=== PATIENT | male | born 1970 | race Caucasian/White ===

== ENCOUNTER 2020-01-19 16:36 | Inpatient (IN) ==
[2020-01-19] MEDS ORDERED: HYDROmorphone INJ 1 MG/ML SYRINGE IV STA (18:40)
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
[2020-01-19 19:47] LABS: Basophils # (auto) 0.01 K/uL (0-0.2); Basophils % (auto) 0.2 %; Eosinophils # (auto) 0.17 K/uL (0-0.5); Hematocrit (blood only) 41.2 % (42-52); Hemoglobin 14.6 g/dL (14.0-18.0); Immature Granulocytes # (auto) 0.01 K/uL (0.00-0.02); Immature Granulocytes % (auto) 0.2 %; Lymphocytes # (auto) 1.67 K/uL (1.2-3.4); Lymphocytes % (auto) 29.3 %; Mean Corpuscular Hgb Conc 35.4 g/dL (32-36); Mean Corpuscular Volume 93.2 fL (80-100); Mean Platelet Volume 9.8 fL (7.4-10.4); Monocytes # (auto) 0.61 K/uL (0.11-0.59); Monocytes % (auto) 10.7 %; Neutrophils # (auto) 3.22 K/uL (1.4-6.5); Neutrophils % (auto) 56.6 %; Platelet Count 157 K/uL (130-400); RDW Coefficient of Variation 12.6 % (11.5-14.5); RDW Standard Deviation 42.6 fL (36.4-46.3); Red Blood Count 4.42 M/uL (4.7-6.1); White Blood Count 5.69 K/uL (4.8-10.8)
[2020-01-19] MEDS ORDERED: HYDROmorphone INJ 0.5 MG/0.5 ML SYR IV STA (20:02)
[2020-01-19 20:14] LABS: Alanine Aminotransferase 38 U/L (12-78); Albumin Level 3.3 gm/dl (3.4-5.0); Aspartate Aminotransferase 23 U/L (15-37); BUN Creatinine Ratio 23.2 (10-20); Blood Urea Nitrogen 23 mg/dl (7-18); Calcium 8.8 mg/dl (8.5-10.1); Carbon Dioxide 25 mmol/L (21-32); Chloride 112 mmol/L (98-107); Est GFR (African American) 104.3; Glucose 219 mg/dl (70-99); Potassium 3.8 mmol/L (3.5-5.1); Sodium 140 mmol/L (136-145)
[2020-01-19 20:17] LABS: Albumin Globulin Ratio 0.9 (0.9-2); Alkaline Phosphatase 69 U/L (45-117); Bilirubin,Total 0.2 mg/dl (0.2-1); Globulin 3.8 gm/dl (2.5-4.0); Total Protein 7.1 gm/dl (6.4-8.2)
[2020-01-19] MEDS ORDERED: DEXAMETHASONE SOD INJ 10 MG/ML VIAL IV ONE (21:32)
--- NOTE | 2020-01-19 21:33 | History & Physical Report ---
Date of Service January 19, 2020 Assessment & Plan (1) Lumbar back pain with radiculopathy affecting right lower extremity: Admit to medical surgical floor Give Decadron 10 mg IV now, and then 6 mg IV every 6 hours Acetaminophen 650 mg p.o. every 6 hours as needed mild pain or temperature. Oxycodone 5 mg p.o. every 4 hours as needed moderate pain. Dilaudid 1 mg IV every 3 hours as needed severe pain Zofran 4 mg IV every 6 hours as needed Consult orthopedic spine surgery Dr. Wolfe Present on Admission?: Yes (2) Lumbar herniated disc: Lumbar herniated disc at L5-S1 causing deflection of thecal sac and pressure on L5 nerve root Present on Admission?: Yes (3) Diabetes mellitus: Hold Metformin. On Toujeo Solostar 15 to 17 units subcu at bedtime. Anticipate that his sugars will increase on Decadron. For now placed on 15 units subcu at bedtime. Placed on Accu-Cheks before meals and at bedtime with NovoLog coverage per scale Present on Admission?: Yes (4) Hyperlipidemia: On no specific treatment at this time Present on Admission?: Yes (5) Anxiety: Continue alprazolam 1 mg p.o. 3 times daily as needed. He has been on Ambien 10 mg p.o. at bedtime as needed in the past, and requests that be added tonight. Present on Admission?: Yes History of Present Illness Chief Complaint: The patient presents to the emergency department with complaint of persistent and intractable low back pain radiating toward his right buttock and leg Primary Care Provider: NO PCP The patient is a 49-year-old male with a past medical history including diabetes mellitus, anxiety, chronic pain syndrome, lumbar degenerative disc disease with herniated disc at L5-S1. He presents to the emergency department with persistent and worsening pain from his low back to right buttock to right leg. He did undergo an MRI in the outpatient setting at [facility] emergency department on 01/01 which showed disc herniation at L5-S1 with significant deformity of the right side of the thecal sac and encroachment on right sacral nerve roots. He does have pending appointments with orthopedic surgery and neurology on 01/20 and 01/21, however, his pain was so severe that he came in to the ED tonight. Dr. Wolfe, orthopedic spine surgery, was contacted over the phone by the ED, and agreed to see the patient in consult tomorrow. The plan is admit the patient to the [facility] Hospitalist service. He was given Dilaudid 1 mg and 0.5 mg IV in the ED with improvement in pain. I have added Decadron 10 mg IV now in ED, and to continue 6 mg IV every 6 hours upon admission. Allergies Allergy/AdvReac Type Severity Reaction Status Date / Time blue dye Allergy Verified 01/14/20 08:09 bupropion [From Wellbutrin] Allergy Verified 01/14/20 08:09 celecoxib [From Celebrex] Allergy Verified 01/14/20 08:09 diclofenac Allergy Verified 01/14/20 08:09 duloxetine [From Cymbalta] Allergy Verified 01/14/20 08:09 etodolac Allergy Verified 01/14/20 08:09 iodine Allergy Verified 01/14/20 08:09 lidocaine Allergy Verified 01/14/20 08:09 lisinopril Allergy Verified 01/14/20 08:09 paroxetine [From Paxil] Allergy Verified 01/14/20 08:09 povidone-iodine Allergy Verified 01/14/20 08:09 [From Betadine] rofecoxib Allergy Verified 01/14/20 08:09 soap [From Betadine] Allergy Verified 01/14/20 08:09 tramadol [From Ultram] Allergy Verified 01/14/20 08:09 venlafaxine [From Effexor] Allergy Verified 01/14/20 08:09 Home Medications Home Medications Medication Instructions Recorded Confirmed Type cyclobenzaprine 10 mg tablet 10 mg PO TID PRN 01/14/20 01/19/20 History Medical Marijuana 0 puff INHALATION DAILY 01/19/20 01/19/20 History alprazolam [Xanax] 1 mg PO TID PRN 01/19/20 01/19/20 History aspirin 975 mg PO .5XDAILY 01/19/20 01/19/20 History hydrocodone-acetaminophen [[place]] 1 tab PO Q6H PRN 01/19/20 01/19/20 History ibuprofen 800 mg PO .5-6XDAILY PRN 01/19/20 01/19/20 History insulin glargine U-300 conc 15 - 17 unit SUBCUT HS 01/19/20 01/19/20 History [Tou[place]a HartoStar U-300 Insulin] metformin 1,000 mg PO BID 01/19/20 01/19/20 History oxycodone 5 mg PO .4-6XDAILY PRN 01/19/20 01/19/20 History Past Med/Surg History Medical History Anxiety Chronic low back pain Diabetes mellitus Hyperlipidemia Hypertension Surgical History H/O hernia repair S/P right rotator cuff repair Family History Mother Parkinson disease Myocardial infarction Heart disease Brother Cancer Diabetes Sister Diabetes Social History Smoking Status: Never smoker Hx Alcohol Use: Yes Alcohol type: beer and wine Alcohol Intake Frequency: Monthly or Less Hx Substance Use: Yes Prescribed Medications: Marijuana Last Used Substance: Days (ago) Preferred Language: Djiboutian Communication Ability: Effective Program Host Required: No Beliefs That Will Affect Care: None marital status: Legally Current Living Situation: Alone current occupational status: disabled How many Children do You have: 0 Other Information That Helps Us Care for You: No Feels Safe at Home: Yes Safety Concerns: Feels Safe At This Time Do you think of yourself as: straight/heterosexual Gender Identity: Male Assistive Devices: Cane Review of Systems Review of Systems: The patient denies chest pain, palpitations, shortness of breath, dyspnea on exertion, cough, lower extremity swelling, sore throat, fevers, chills, sweats, weight change, fatigue, nausea, vomiting, diarrhea , constipation, abdominal pain, pelvic pain, blood in urine or stool, dysuria, urinary frequency or urgency, lightheadedness, dizziness, headache, memory loss, loss of consciousness, rash, abnormal bruising or bleeding, imbalance, focal or generalized weakness, numbness or tingling in arms, generalized arthralgias or myalgias, neck pain, or night sweats. The review of systems is otherwise negative other than for that already noted above, and at least 10 systems have been reviewed. Physical Exam Physical Exam: The patient is awake, alert and oriented 3, well developed and well nourished, normocephalic and atraumatic, lying in bed and in no acute distress status post pain medication HEENT--PERRL, EOMI, mucous membranes and oropharynx normal. Neck--supple. No JVD. No bruits. Thyroid normal, trachea midline, no adenopathy. Heart--normal S1 and S2. No murmurs, rubs or gallops. Lungs--clear bilaterally, no respiratory distress, no accessory muscle use. Abdomen--normal bowel sounds and soft. Nontender. Nondistended. Extremities--no cyanosis or clubbing. No edema. There are good distal pulses b/l. Dermatologic--normal skin turgor, normal color, no abnormal lymph nodes, no rash. Neurologic--cranial nerves II through XII grossly intact. Rheumatologic--limited exam due to lumbar radiculopathy Psychiatric--normal affect. Results & Data Results & Data ([facility]) Vital Signs (Past 12 Hours) Vital Signs Temp Pulse Pulse Resp BP BP Pulse Ox 01/19/20 20:39 92 H 20 131/104 H 94 01/19/20 16:44 98.2 F 89 20 154/96 H 95 Laboratory Results Laboratory Results WBC 5.69 K/uL (4.8-10.8) 01/19/20 19:34 RBC 4.42 M/uL (4.7-6.1) L 01/19/20 19:34 Hgb 14.6 g/dL (14.0-18.0) 01/19/20 19:34 Hct 41.2 % (42-52) L 01/19/20 19:34 MCV 93.2 fL (80-100) 01/19/20 19:34 MCH 33.0 pg (25-34) 01/19/20 19:34 MCHC 35.4 g/dL (32-36) 01/19/20 19:34 RDW Std Deviation 42.6 fL (36.4-46.3) 01/19/20 19:34 RDW Coeff of Sherif 12.6 % (11.5-14.5) 01/19/20 19:34 Plt Count 157 K/uL (130-400) 01/19/20 19:34 MPV 9.8 fL (7.4-10.4) 01/19/20 19:34 Immature Gran % (Auto) 0.2 % 01/19/20 19:34 Neut % (Auto) 56.6 % 01/19/20 19:34 Lymph % (Auto) 29.3 % 01/19/20 19:34 [place] % (Auto) 10.7 % 01/19/20 19:34 Eos % (Auto) 3.0 % 01/19/20 19:34 Baso % (Auto) 0.2 % 01/19/20 19:34 Neut # (Auto) 3.22 K/uL (1.4-6.5) 01/19/20 19:34 Lymph # (Auto) 1.67 K/uL (1.2-3.4) 01/19/20 19:34 [place] # (Auto) 0.61 K/uL (0.11-0.59) H 01/19/20 19:34 Eos # (Auto) 0.17 K/uL (0-0.5) 01/19/20 19:34 Baso # (Auto) 0.01 K/uL (0-0.2) 01/19/20 19:34 Immature Gran # (Auto) 0.01 K/uL (0.00-0.02) 01/19/20 19:34 Sodium 140 mmol/L (136-145) 01/19/20 19:34 Potassium 3.8 mmol/L (3.5-5.1) 01/19/20 19:34 Chloride 112 mmol/L (98-107) H 01/19/20 19:34 Carbon Dioxide 25 mmol/L (21-32) 01/19/20 19:34 Anion Gap 4.0 (3-11) 01/19/20 19:34 BUN 23 mg/dl (7-18) H 01/19/20 19:34 Creatinine 0.97 mg/dl (0.6-1.4) 01/19/20 19:34 Est Cr Clr Drug Dosing Not Reportable 01/19/20 19:34 Est GFR ( Amer) 104.3 01/19/20 19:34 Est GFR (Non-Af Amer) 90.0 01/19/20 19:34 BUN/Creatinine Ratio 23.2 (10-20) H 01/19/20 19:34 Glucose 219 mg/dl (70-99) H 01/19/20 19:34 Calcium 8.8 mg/dl (8.5-10.1) 01/19/20 19:34 Total Bilirubin 0.2 mg/dl (0.2-1) 01/19/20 19:34 AST 23 U/L (15-37) 01/19/20 19:34 ALT 38 U/L (12-78) 01/19/20 19:34 Alkaline Phosphatase 69 U/L (45-117) 01/19/20 19:34 Total Protein 7.1 gm/dl (6.4-8.2) 01/19/20 19:34 Albumin 3.3 gm/dl (3.4-5.0) L 01/19/20 19:34 Globulin 3.8 gm/dl (2.5-4.0) 01/19/20 19:34 Albumin/Globulin Ratio 0.9 (0.9-2) 01/19/20 19:34 Code Status & VTE Plan Code Status Full code VTE Prophylaxis Plan VTE Prophylaxis will be ordered: Yes PG Care Time/CCT Total # of Minutes Spent Total Time Spent with Patient: Total time spent is greater than 50% in coordination of care (as documented) at patient's floor/unit and/or counseling patient: Coding Level of Care Code 89555 Initial Inpt Care Lvl 3 Diagnoses Lumbar back pain with radiculopathy affecting right lower extremity M54.16 Lumbar herniated disc M51.26 Diabetes mellitus E11.9 Hyperlipidemia E78.5 Anxiety F41.9
[2020-01-19] MEDS ORDERED: CYCLOBENZAPRINE HCL 10 MG TAB PO PRN (22:46)
[2020-01-19] MEDS ORDERED: GLUCOSE 40% GEL 15 GM TUBE PO PRN (22:46)
[2020-01-19] MEDS ORDERED: DEXTROSE 50% 50 ML SYRINGE IV PRN (22:46)
[2020-01-19] MEDS ORDERED: GLUCAGON FOR INJ 1 MG VIAL SQ PRN (22:46)
[2020-01-19] MEDS ORDERED: GLUCOSE 10 TABS/TUBE PO PRN (22:46)
[2020-01-19] MEDS ORDERED: ACETAMINOPHEN 325 MG TAB PO PRN (22:46)
[2020-01-19] MEDS ORDERED: ONDANSETRON INJ 2 MG/ML 2 ML VIAL IV PRN (22:46)
[2020-01-19] MEDS ORDERED: ALUMINUM/MAGNESIUM SUSP 30 ML UDC PO PRN (22:46)
[2020-01-19] MEDS ORDERED: CARBOHYDRATES FOR HYPOGLYCEMIA PO PRN (22:46)
[2020-01-19] MEDS ORDERED: INSULIN GLARGINE SOLOSTAR 100 UNITS/ML 3 ML PEN SC ONE (23:00)
[2020-01-19] MEDS ORDERED: MEDICAL MARIJUANA INH SCH (23:45)
[2020-01-20] MEDS: oxyCODONE HCL IR 5 MG TAB (IMMEDIATE RELEASE) PO PRN ×4 (00:22→17:51)
[2020-01-20] MEDS: ALPRAZolam 0.5 MG TABLET PO PRN ×3 (00:22→20:20)
[2020-01-20] MEDS: ZOLPIDEM TARTRATE 10 MG TAB PO PRN ×2 (01:31→21:16)
[2020-01-20] MEDS: HYDROmorphone INJ 0.5 MG/0.5 ML SYR IV PRN ×4 (02:29→20:20)
[2020-01-20] MEDS: DEXAMETHASONE SOD PHOSPHATE 6 MG in SYRINGE 0 ML IV SCH ×4 (05:38→23:51)
[2020-01-20] MEDS ORDERED: DEXAMETHASONE SOD INJ 10 MG/ML VIAL IV SCH (06:00)
[2020-01-20 08:13] LABS: Estimated Average Glucose 189 mg/dl; Hemoglobin A1C 8.2 % (4.5-5.6)
--- NOTE | 2020-01-20 08:46 | Orthopedic Consultation ---
Date of Consultation January 20, 2020 Assessment & Plan (1) Lumbar back pain with radiculopathy affecting right lower extremity: At this time the MRI of the patient lumbar spine performed [place] demonstrates evidence of spondylolisthesis with spondylolysis at L5-S1. He has evidence of acute disc herniation on the right with significant displacement of the traversing nerve root. I discussed with this patient regarding his imaging and treatment options. We could consider interventional pain management which she has tried in the past versus surgical intervention. Surgery would require a lumbar decompression and fusion L5-S1. Risk benefits pros cons and alternatives were outlined in detail. At this time the patient will consider his options notify us how he would like to proceed. Present on Admission?: Yes History of Present Illness Reason for Consultation: Back and right leg pain Attending Physician: Kamron Coyne MD History of Present Illness This is a 49-year-old male that has a history of chronic persistent back and leg pain with a marked increase in symptoms affecting the right lower extremity since November of this year. He was moving from his home and had significant increase activity that may precipitate his symptoms. Again he has a history of chronic persistent back pain and spondylolisthesis L5-S1. He now has severe right buttock and leg pain. The left lower extremity is asymptomatic at this time. Denies any loss of bowel bladder function. He is on Social Security disability. Allergies Allergy/AdvReac Type Severity Reaction Status Date / Time blue dye Allergy Verified 01/14/20 08:09 bupropion [From Wellbutrin] Allergy Verified 01/14/20 08:09 celecoxib [From Celebrex] Allergy Verified 01/14/20 08:09 diclofenac Allergy Verified 01/14/20 08:09 duloxetine [From Cymbalta] Allergy Verified 01/14/20 08:09 etodolac Allergy Verified 01/14/20 08:09 iodine Allergy Verified 01/14/20 08:09 lidocaine Allergy Verified 01/14/20 08:09 lisinopril Allergy Verified 01/14/20 08:09 paroxetine [From Paxil] Allergy Verified 01/14/20 08:09 povidone-iodine Allergy Verified 01/14/20 08:09 [From Betadine] rofecoxib Allergy Verified 01/14/20 08:09 soap [From Betadine] Allergy Verified 01/14/20 08:09 tramadol [From Ultram] Allergy Verified 01/14/20 08:09 venlafaxine [From Effexor] Allergy Verified 01/14/20 08:09 Home Medications Home Medications Medication Instructions Recorded Confirmed Type cyclobenzaprine 10 mg tablet 10 mg PO TID PRN 01/14/20 01/19/20 History Medical Marijuana 0 puff INHALATION DAILY 01/19/20 01/19/20 History alprazolam [Xanax] 1 mg PO TID PRN 01/19/20 01/19/20 History aspirin 975 mg PO .5XDAILY 01/19/20 01/19/20 History hydrocodone-acetaminophen [[place]] 1 tab PO Q6H PRN 01/19/20 01/19/20 History ibuprofen 800 mg PO .5-6XDAILY PRN 01/19/20 01/19/20 History insulin glargine U-300 conc 15 - 17 unit SUBCUT HS 01/19/20 01/19/20 History [Toujeo SoloStar U-300 Insulin] metformin 1,000 mg PO BID 01/19/20 01/19/20 History oxycodone 5 mg PO .4-6XDAILY PRN 01/19/20 01/19/20 History Patient History Medical History (Updated 01/20/20 @ 01:33 by Kamron Coyne MD) Anxiety Chronic low back pain Diabetes mellitus Hyperlipidemia Hypertension Surgical History H/O hernia repair S/P right rotator cuff repair Family History Mother Parkinson disease Myocardial infarction Heart disease Brother Cancer Diabetes Sister Diabetes Social History Smoking Status: Never smoker Hx Alcohol Use: Yes Alcohol type: beer and wine Alcohol Intake Frequency: Monthly or Less Hx Substance Use: Yes Prescribed Medications: Marijuana Last Used Substance: Days (ago) Preferred Language: Italian Communication Ability: Effective It Architecture Analyst Required: No Beliefs That Will Affect Care: None marital status: Legally Current Living Situation: Alone current occupational status: disabled How many Children do You have: 0 Other Information That Helps Us Care for You: No Feels Safe at Home: Yes Safety Concerns: Feels Safe At This Time Do you think of yourself as: straight/heterosexual Gender Identity: Male Assistive Devices: Cane Physical Exam Physical Exam: On exam he is obvious distress. He has significant tension signs with straight leg raising on the right and negative on the left. There are some deficits to the right dorsiflexion extensor hallucis longus at a 4/5 compared to 5 5 on the left. Results & Data ([facility]) Vital Signs (Past 12 Hours) Vital Signs Temp Pulse Pulse Resp BP BP Pulse Ox 01/20/20 08:12 36.6 C 84 18 116/77 93 01/19/20 22:46 36.7 C 103 H 20 156/97 H 97 01/19/20 22:35 84 18 156/104 H 98 01/19/20 21:46 82 18 131/104 H 95
[2020-01-20] MEDS: INSULIN ASPART 100 UNITS/ML 3 ML PEN SC SCH ×5 (09:03→23:52)
--- NOTE | 2020-01-20 17:05 | Hospitalist Progress Note ---
Date of Service January 20, 2020 Assessment & Plan (1) Lumbar back pain with radiculopathy affecting right lower extremity: Continue decadron, pain control Consulted orthopedic spine surgery Dr. Wolfe - intervential pain management vs surgical intervention. (2) Lumbar herniated disc: Lumbar herniated disc at L5-S1 causing deflection of thecal sac and pressure on L5 nerve root As above (3) Diabetes mellitus: Hold Metformin and Toujeo Pharmacy glycemic consult (4) Hyperlipidemia: On no specific treatment at this time (5) Anxiety: Continue alprazolam 1 mg p.o. 3 times daily as needed. Ambien for sleep initiated at admission. (6) DVT prophylaxis: SCDs Admission and Anticipated Discharge Date Admission Date: January 19, 2020 Subjective Mr. Power has some lower back pain with intermittent radiation to his right lower extremity. He denies any changes in bowel or bladder or numbness. ROS Constitutional: no chills, aches, sweats or fever Respiratory: no sob,cough, sputum, or wheezing Cardiac: no chest pain, palpitations, edema, orthopnea or lightheadedness GI: no abdominal pain, nausea, vomiting, diarrhea or constipation : no dysuria or hesitancy Extremities: no joint pain or weakness Skin: no rash All other systems reviewed and negative Physical Exam Physical Exam: General: no distress Eyes: normal inspection, PERLL Respiratory: chest non tender, clear to auscultation, normal breath sounds, no respiratory distress, no accessory muscle use Cardiac: regular rate and rhythm, no rub or gallop, no murmur, no edema, no jvd GI/: active bowel sounds, no abd pain or tenderness, soft, non distended Extremities: normal range of motion, normal strength, non tender Neuro/Psych: alert and oriented x 3, normal mood and affect Skin: normal color, dry Results & Data Results & Data ([facility]) Vital Signs (Past 12 Hours) Vital Signs Temp Pulse Resp BP Pulse Ox 01/20/20 08:12 36.6 C 84 18 116/77 93 PG Care Time/CCT Total # of Minutes Spent Total Time Spent with Patient: Total time spent is greater than 50% in coordination of care (as documented) at patient's floor/unit and/or counseling patient: Coding Level of Care Code 91571 Subseq Hosp Care Lvl 2 Diagnoses Lumbar back pain with radiculopathy affecting right lower extremity M54.16 Lumbar herniated disc M51.26 Diabetes mellitus E11.9 Hyperlipidemia E78.5 Anxiety F41.9 DVT prophylaxis Z29.9
[2020-01-20] MEDS ORDERED: PHARMACY GLYCEMIC MGMT CONSULT PRN (17:08)
--- NOTE | 2020-01-20 18:30 | Pharmacy Report ---
Glycemic Control Consultation - Date of Service January 20, 2020 - Scope Scope: Glycemic Pharmacist consulted for glycemic control and to write orders per [facility] inpatient glycemic control protocol. - Objective Weight: 88.5 kg Accuchecks BSG (last 24hrs): 01/19/20 01/20/20 01/20/20 19:34 08:08 12:09 Glucose 219 H POC Glucose 244 H 282 H 01/20/20 17:24 Glucose POC Glucose 277 H Laboratory Data (last 24hrs): 01/19/20 19:34 Potassium 3.8 Carbon Dioxide 25 Anion Gap 4.0 Creatinine 0.97 Est Cr Clr Drug Dosing Not Reportable HbA1c: Hemoglobin A1c 8.2 % (4.5-5.6) H 01/20/20 07:31 - Recent Pertinent Medications Outpatient Anti-diabetic Regimen: * Toujeo 15-17 units SC HS + Metformin 1000 mg PO BIDM * A1c = 8.2% (01/20/2020) The patient is currently receiving: * Basal insulin: Lantus 15 units every 24 hours * Correctional Insulin: Novolog Correction per scale ACHS Goal Range: Low 100 mg/dL - High 150 mg/dL Correction Factor: 25 mg/dL/unit * Prandial insulin: Per carb ratio of 1 unit per 10 grams CHO consumed Risk Factors for Insulin Resistance: * Steroids: * Dexamethasone 6 mg IV Q6H * Diet: * T2DM - Assessment & Plan Assessment & Plan: ASSESSMENT: * 49 yo M admitted secondary to back pain. Pharmacy is consulted for inpatient glycemic management. * Admission BSG was 219 mg/dL. Patient received 10 mg of IV dexamethasone in the ED and 12 units of Lantus. Then patient was ordered Dexamethasone 6 mg IV every 6 hours and Lantus 15 units HS by the admitting team. * Fasting BSG was 244 mg/dL followed by 282 mg/dL at lunchtime. Pharmacy was consulted prior to the dinner BSG today. * I will tighten the patient's CF/CR to reflect a weight and stress of 3 starting with dinner. I will also order 30 units of NPH insulin BIDM which is 0.34 units/kg. This NPH insulin will help to cover the associated hyperglycemic that is expected with IV dexamethasone. * Lastly, I will stress the patient's home Lantus dose slightly this evening and give 20 units HS. This is to cover the patient's normal basal needs given outpatient A1c. This is a significant amount of changes at one time but expect the patient's BSG to continue to rise given steroid dose so will remain aggressive. If dexamethasone is discontinued, please contact [facility] to ensure they are aware. PLAN FOR INPATIENT GLYCEMIC CONTROL: * Holding outpatient oral diabetes medications * Basal insulin - increase * Lantus 20 units SQ HS * NPH 30 units SQ BIDM * Bolus insulin - tightened * NovoLog per scale ACHS or Q6hrs while NPO * Goal Range: Low 110 mg/dL - High 140 mg/dL * Correction Factor: 20 mg/dL/unit * Nutritional / Prandial insulin per carb ratio of 1 unit per 6 grams CHO consumed * Please note that the plan above was derived based on current level of insulin resistance and hospital stress. These recommendations are appropriate for inpatient admission only. Plan of care upon discharge will need to be reassessed to avoid potential outpatient hypo/hyperglycemia. Thank you.
[2020-01-20] MEDS: INSULIN HUMAN NPH SC SCH (19:07)
[2020-01-20] MEDS ORDERED: INSULIN GLARGINE SOLOSTAR 100 UNITS/ML 3 ML PEN SC SCH (21:00)
[2020-01-20] MEDS: INSULIN GLARGINE SOLOSTAR 100 UNITS/ML 3 ML PEN SC SCH (21:17)
[2020-01-21] MEDS: MAGNESIUM HYDROXIDE SUSP 30 ML UDC PO PRN ×2 (00:01→18:16)
[2020-01-21] MEDS: INSULIN ASPART 100 UNITS/ML 3 ML PEN SC SCH ×5 (04:00→21:16)
[2020-01-21] MEDS: DEXAMETHASONE SOD PHOSPHATE 6 MG in SYRINGE 0 ML IV SCH ×3 (05:50→17:20)
[2020-01-21 06:09] LABS: Hematocrit (blood only) 43.7 % (42-52); Hemoglobin 15.3 g/dL (14.0-18.0); Mean Corpuscular Hemoglobin 32.5 pg (25-34); Mean Corpuscular Volume 92.8 fL (80-100); Mean Platelet Volume 9.7 fL (7.4-10.4); Platelet Count 180 K/uL (130-400); RDW Coefficient of Variation 12.2 % (11.5-14.5); RDW Standard Deviation 41.4 fL (36.4-46.3); Red Blood Count 4.71 M/uL (4.7-6.1); White Blood Count 12.67 K/uL (4.8-10.8)
[2020-01-21 06:28] LABS: BUN Creatinine Ratio 25.5 (10-20); Calcium 8.8 mg/dl (8.5-10.1); Creatinine Clr Calc Pharmacy 85.1 ml/min; Est GFR (African American) 86.7; Est GFR (Non-African American) 74.8
--- NOTE | 2020-01-21 08:02 | Hospitalist Progress Note ---
Date of Service January 21, 2020 Assessment & Plan (1) Lumbar back pain with radiculopathy affecting right lower extremity: Continue decadron, pain control Consulted orthopedic spine surgery Dr. Wolfe - Patient will likely go to surgery today if insurance authorization goes through. No cardiac or pulmonary history per patient - patient does report "abnormal" EKG in the past. Will order a preop EKG. Remote smoking history but only about a pack a year at that time. He does smoke daily medical marijuana. RCRI is 6.0%. This risk was discussed with patient and he verbalized understanding (2) Lumbar herniated disc: Lumbar herniated disc at L5-S1 causing deflection of thecal sac and pressure on L5 nerve root As above (3) Diabetes mellitus: Hold Metformin and Toujeo Pharmacy glycemic consult (4) Hyperlipidemia: On no specific treatment at this time (5) Anxiety: Continue alprazolam 1 mg p.o. 3 times daily as needed. Ambien for sleep initiated at admission. (6) DVT prophylaxis: SCDs Admission and Anticipated Discharge Date Admission Date: January 19, 2020 Subjective Mr. Power continues to have lumbar pain with intermittent radiation to right leg. He otherwise has no complaints. ROS Constitutional: no chills, aches, sweats or fever Respiratory: no sob,cough, sputum, or wheezing Cardiac: no chest pain, palpitations, edema, orthopnea or lightheadedness GI: no abdominal pain, nausea, vomiting, diarrhea or constipation : no dysuria or hesitancy Extremities: no joint pain or weakness Skin: no rash All other systems reviewed and negative Physical Exam Physical Exam: General: no distress Eyes: normal inspection, PERLL Respiratory: chest non tender, clear to auscultation, normal breath sounds, no respiratory distress, no accessory muscle use Cardiac: regular rate and rhythm, no rub or gallop, no murmur, no edema, no jvd GI/: active bowel sounds, no abd pain or tenderness, soft, non distended Extremities: normal range of motion, normal strength, non tender Neuro/Psych: alert and oriented x 3, normal mood and affect Skin: normal color, dry Results & Data Results & Data ([facility]) Vital Signs (Past 12 Hours) Vital Signs Temp Pulse Resp BP Pulse Ox 01/20/20 23:51 36.7 C 96 H 20 150/96 H 94 PG Care Time/CCT Total # of Minutes Spent Total Time Spent with Patient: Total time spent is greater than 50% in coordination of care (as documented) at patient's floor/unit and/or counseling patient: Coding Level of Care Code 89306 Subseq Hosp Care Lvl 2 Diagnoses Lumbar back pain with radiculopathy affecting right lower extremity M54.16 Lumbar herniated disc M51.26 Diabetes mellitus E11.9 Hyperlipidemia E78.5 Anxiety F41.9 DVT prophylaxis Z29.9
[2020-01-21] MEDS: INSULIN HUMAN NPH SC SCH ×2 (09:15→18:19)
[2020-01-21] MEDS: ALPRAZolam 0.5 MG TABLET PO PRN ×2 (09:35→21:29)
--- NOTE | 2020-01-21 10:45 | Orthopedic Progress Note ---
Date of Service January 21, 2020 Assessment & Plan (1) Spondylolisthesis, lumbar region: Admission and Anticipated Discharge Date Admission Date: January 19, 2020 This time patient is struggling significant with pain and inability to ambulate and would like to pursue surgical intervention. Would require a lumbar decompression and fusion L5-S1. This would allow us to both address the disc herniation as well as stabilize the lumbar spine as he has no instability and a pars defect at L5-S1. Risk benefits pros cons again were outlined in detail. We had a very candid discussion regarding appropriate narcotic pain management. He understands and agrees. We will try to have surgery performed as soon as possible. Subjective Patient continues to complain of severe back and right leg pain. Is limiting hi s ability to stand and ambulate. He is requiring IV narcotics to control symptoms. Physical Exam Physical Exam: On exam patient is lying in bed with pillows under his right lower extremity. He exhibits breakaway weakness to testing the right lower extremity with significantly positive tension signs on the right negative on the left. Results & Data ([facility]) Vital Signs (Past 12 Hours) Vital Signs Temp Pulse Resp BP Pulse Ox 01/21/20 07:59 36.7 C 62 16 119/75 97 01/20/20 23:51 36.7 C 96 H 20 150/96 H 94
--- NOTE | 2020-01-21 12:04 | Anesthesiology Consultation ---
Date of Service January 21, 2020 Assessment & Plan (1) Encounter for pre-operative examination: Chart Review Chart Review: Acceptable Risk for Surgery and Patient NOT seen in Pre Admission Testing Consults Requested none History Surgery Operation Date: 01/21/20 12:55 Proposed Procedures p L5-S1 Decompression and Fusion with Instrumentation - Thanh Wolfe DO Height/Weight Height: 5 ft 9 in Weight: 88.5 kg Allergies Allergy/AdvReac Type Severity Reaction Status Date / Time blue dye Allergy Verified 01/14/20 08:09 bupropion [From Wellbutrin] Allergy Verified 01/14/20 08:09 celecoxib [From Celebrex] Allergy Verified 01/14/20 08:09 diclofenac Allergy Verified 01/14/20 08:09 duloxetine [From Cymbalta] Allergy Verified 01/14/20 08:09 etodolac Allergy Verified 01/14/20 08:09 iodine Allergy Verified 01/14/20 08:09 lidocaine Allergy Verified 01/14/20 08:09 lisinopril Allergy Verified 01/14/20 08:09 paroxetine [From Paxil] Allergy Verified 01/14/20 08:09 povidone-iodine Allergy Verified 01/14/20 08:09 [From Betadine] rofecoxib Allergy Verified 01/14/20 08:09 soap [From Betadine] Allergy Verified 01/14/20 08:09 tramadol [From Ultram] Allergy Verified 01/14/20 08:09 venlafaxine [From Effexor] Allergy Verified 01/14/20 08:09 Medications Home Medications Medication Instructions Recorded Confirmed Last Taken cyclobenzaprine 10 mg tablet 10 mg PO TID PRN 01/14/20 01/19/20 Unknown Medical Marijuana 0 puff INHALATION DAILY 01/19/20 01/19/20 Unknown alprazolam [Xanax] 1 mg PO TID PRN 01/19/20 01/19/20 Unknown aspirin 975 mg PO .5XDAILY 01/19/20 01/19/20 Unknown hydrocodone-acetaminophen [[place]] 1 tab PO Q6H PRN 01/19/20 01/19/20 Unknown ibuprofen 800 mg PO .5-6XDAILY PRN 01/19/20 01/19/20 Unknown insulin glargine U-300 conc 15 - 17 unit SUBCUT HS 01/19/20 01/19/20 Unknown [[place] SoloStar U-300 Insulin] metformin 1,000 mg PO BID 01/19/20 01/19/20 Unknown oxycodone 5 mg PO .4-6XDAILY PRN 01/19/20 01/19/20 Unknown Active Medications Generic Name Dose Route Start Last Admin Trade Name Freq PRN Reason Stop Dose Admin Alprazolam 1 mg 01/19/20 22:46 01/21/20 09:35 Alprazolam 0.5 Mg Tablet PO 02/18/20 22:45 1 mg TID PRN Administration Anxiety Hydromorphone HCl 0.5 mg 01/19/20 22:46 01/20/20 20:20 Hydromorphone Inj 0.5 Mg/0.5 Ml Syr IV 02/02/20 22:45 0.5 mg Q3H PRN Administration Severe Pain Dexamethasone Sodium Phosphate 1.5 mls @ 1 mls/min 01/20/20 06:00 01/21/20 05:50 6 mg/ Syringe IV 02/19/20 05:59 1 mls/min Q6H SUZIE Administration Insulin Aspart 0 units 01/20/20 07:30 01/21/20 09:13 Insulin Aspart 100 Units/Ml 3 Ml Pen SC 02/19/20 07:29 16 units ACHS SUZIE Administration Protocol Insulin Glargine 20 units 01/20/20 21:00 01/20/20 21:17 Insulin Glargine Solostar 100 Units/Ml 3 Ml Pen SC 02/19/20 20:59 20 units HS SUZIE Administration Protocol Insulin Human NPH 30 units 01/20/20 17:30 01/21/20 09:15 Insulin Human Nph SC 02/19/20 17:29 30 units BIDM SUZIE Administration Protocol Magnesium Hydroxide 30 ml 01/19/20 22:46 01/21/20 00:01 Magnesium Hydroxide Susp 30 Ml Udc PO 02/18/20 22:45 30 ml Q6H PRN Administration Constipation Oxycodone HCl 5 mg 01/19/20 22:58 01/20/20 17:51 Oxycodone Hcl Ir 5 Mg Tab (Immediate Release) PO 02/02/20 22:57 5 mg Q4H PRN Administration Moderate Pain Zolpidem Tartrate 10 mg 01/20/20 01:14 01/20/20 21:16 Zolpidem Tartrate 10 Mg Tab PO 02/19/20 01:13 10 mg HS PRN Administration Sleep Past Medical History Medical History Anxiety Chronic low back pain Diabetes mellitus Hyperlipidemia Hypertension Past Family History Family History Mother Parkinson disease Myocardial infarction Heart disease Brother Cancer Diabetes Sister Diabetes Past Surgical History Surgical History H/O hernia repair S/P right rotator cuff repair Social History Smoking Status: Never smoker Hx Alcohol Use: Yes Alcohol type: beer and wine alcohol intake frequency: holidays/special occasions only Alcohol Intake Frequency Comment: 6 pack a year Hx Substance Use: Yes substance use type: marijuana Last Used Substance: Days (ago) Physical Exam Vital Signs Last Vital Signs Temp 36.7 C 01/21/20 07:59 Pulse 62 01/21/20 07:59 Resp 16 01/21/20 07:59 BP 119/75 01/21/20 07:59 Pulse Ox 97 01/21/20 07:59 Testing Laboratory Results 01/21/20 05:43 01/21/20 05:43 Hemoglobin A1c 8.2 % (4.5-5.6) H 01/20/20 07:31 01/21/20 01/21/20 08:31 03:55 POC Glucose 202 H 212 H Electrocardiogram Date: 01/21/20 Accelerated Junctional rhythm with rate 83, ST & T wave abnormality, consider inferior ischemia, No previous ECGs available
--- NOTE | 2020-01-21 13:10 | Pharmacy Report ---
Pharmacy Glycemic Short Note 2 - Date of Service January 21, 2020 - Glycemic Short BSG Results (Last 24 hours): 01/20/20 01/20/20 01/20/20 17:24 20:31 23:50 Glucose POC Glucose 277 H 280 H 179 H 01/21/20 01/21/20 01/21/20 03:55 05:43 08:31 Glucose 214 H POC Glucose 212 H 202 H 01/21/20 12:20 Glucose POC Glucose 286 H ASSESSMENT: 01/20: * Patient received total of 89 units of insulin yesterday, of which 50 were basal insulin * Fasting BSG elevated at 202 mg/dL, but much improved. Patient plans for NPO status today / continue same NPH dosing to cover steroids * Lunch time BSG elevated / tightened CF and CR PLAN FOR INPATIENT GLYCEMIC CONTROL: * Holding outpatient oral diabetes medications * Basal insulin - no change * Lantus 20 units SQ HS * NPH 30 units SQ BIDM * Bolus insulin - tightened * NovoLog per scale ACHS or Q6hrs while NPO * Goal Range: Low 110 mg/dL - High 140 mg/dL * Correction Factor: 12 mg/dL/unit * Nutritional / Prandial insulin per carb ratio of 1 unit per 4 grams CHO consumed * Please note that the plan above was derived based on current level of insulin resistance and hospital stress. These recommendations are appropriate for inpatient admission only. Plan of care upon discharge will need to be reassessed to avoid potential outpatient hypo/hyperglycemia. Thank you.
[2020-01-21] MEDS: HYDROmorphone INJ 0.5 MG/0.5 ML SYR IV PRN (17:20)
[2020-01-21] MEDS: oxyCODONE HCL IR 5 MG TAB (IMMEDIATE RELEASE) PO PRN (18:16)
[2020-01-21] MEDS: INSULIN GLARGINE SOLOSTAR 100 UNITS/ML 3 ML PEN SC SCH (21:19)
[2020-01-21] MEDS: ZOLPIDEM TARTRATE 10 MG TAB PO PRN (21:29)
[2020-01-22] MEDS: INSULIN ASPART 100 UNITS/ML 3 ML PEN SC SCH ×6 (00:05→21:04)
[2020-01-22] MEDS: DEXAMETHASONE SOD PHOSPHATE 6 MG in SYRINGE 0 ML IV SCH ×3 (00:06→12:00)
[2020-01-22] MEDS ORDERED: Nursing to Pharmacy Communication SCH (03:45)
[2020-01-22] MEDS: INSULIN HUMAN NPH SC SCH ×2 (08:44→18:09)
[2020-01-22 09:01] LABS: Hematocrit (blood only) 44.1 % (42-52); Hemoglobin 15.6 g/dL (14.0-18.0); Mean Corpuscular Hemoglobin 32.8 pg (25-34); Mean Corpuscular Volume 92.6 fL (80-100); Mean Platelet Volume 9.7 fL (7.4-10.4); Platelet Count 175 K/uL (130-400); RDW Coefficient of Variation 12.2 % (11.5-14.5); RDW Standard Deviation 41.3 fL (36.4-46.3); Red Blood Count 4.76 M/uL (4.7-6.1); White Blood Count 14.25 K/uL (4.8-10.8)
--- NOTE | 2020-01-22 09:01 | Electrocardiogram Report ---
Test Reason : Blood Pressure : / mmHG Vent. Rate : 087 BPM Atrial Rate : 300 BPM P-R Int : 000 ms QRS Dur : 094 ms QT Int : 320 ms P-R-T Axes : 000 018 240 degrees QTc Int : 385 ms Poor data quality, interpretation may be adversely affected Sinus rhythm Abnormal ECG No previous ECGs available Confirmed by Mariano Kauffman ([id number]) on 01/22/2020 9:00:43 AM Referred By: REFERRED SELF Confirmed By:Mariano Kauffman
[2020-01-22 09:09] LABS: Mean Corpuscular Hgb Conc 35.4 g/dL (32-36)
[2020-01-22 09:20] LABS: BUN Creatinine Ratio 34.1 (10-20); Calcium 8.4 mg/dl (8.5-10.1); Creatinine Clr Calc Pharmacy 102.3 ml/min; Est GFR (African American) 108.4; Est GFR (Non-African American) 93.5; Potassium 4.1 mmol/L (3.5-5.1)
[2020-01-22] MEDS: ALPRAZolam 0.5 MG TABLET PO PRN ×3 (09:50→20:16)
[2020-01-22] MEDS: HYDROmorphone INJ 0.5 MG/0.5 ML SYR IV PRN ×3 (09:50→23:54)
--- NOTE | 2020-01-22 11:10 | History & Physical Bridge Note ---
Date of Service January 22, 2020 History & Physical Bridge Note I have examined the patient, reviewed the History & Physical and in the interval since the performance of the History & Physical I have noted the following changes of clinical significance: no changes noted
[2020-01-22] MEDS ORDERED: HYDROmorphone INJ 1 MG/ML SYRINGE IV PRN (11:25)
[2020-01-22] MEDS ORDERED: ePHEDrine sulfate 50 MG/ML AMP IV PRN (11:25)
[2020-01-22] MEDS ORDERED: ATROPINE SULFATE 0.1 MG/ML 10ML SYR IV PRN (11:25)
[2020-01-22] MEDS ORDERED: ceFAZolin 2,000 MG/15 ML IV PUSH IV ONE (11:25)
[2020-01-22] MEDS ORDERED: ceFAZolin 2000MG 2,000 MG/15 ML SYR IV ONE (11:26)
[2020-01-22] MEDS ORDERED: fentaNYL citrate 100 MCG/2 ML VIAL ONE (11:28)
[2020-01-22] MEDS ORDERED: DEXAMETHASONE SOD INJ 4 MG/ML VIAL ONE (11:28)
[2020-01-22] MEDS ORDERED: MIDAZOLAM HCL 1 MG/ML 2ML VIAL ONE (11:28)
[2020-01-22] MEDS ORDERED: PROPOFOL IV EMULSION 10 MG/ML 20 ML VIAL IV ONE (11:28)
[2020-01-22] MEDS ORDERED: LIDOCAINE HCL 2% 2 ML VIAL/AMP(20MG/ML) INFIL ONE (11:28)
[2020-01-22] MEDS ORDERED: ONDANSETRON INJ 2 MG/ML 2 ML VIAL ONE (11:28)
[2020-01-22] MEDS ORDERED: NEOSTIGMINE METHYLSULFATE 1 MG/ML 10ML VIAL ONE (11:28)
[2020-01-22] MEDS ORDERED: GLYCOPYRROLATE 0.2 MG/ML VIAL ONE ×2 (11:28→13:24)
--- NOTE | 2020-01-22 11:34 | Pharmacy Report ---
Pharmacy Glycemic Short Note 2 - Date of Service January 22, 2020 - Glycemic Short BSG Results (Last 24 hours): 01/21/20 01/21/20 01/21/20 12:20 17:12 20:43 Glucose POC Glucose 286 H 197 H 228 H 01/22/20 01/22/20 01/22/20 00:03 06:04 08:41 Glucose POC Glucose 207 H 145 H 150 H 01/22/20 08:42 Glucose 160 H POC Glucose ASSESSMENT: 01/21: * Pt has received 147 units of insulin over the past 24hrs * 20 units of basal with Lantus * 67 units of bolus with NovoLog * 60 units of NPH for steroid induced hyperglycemia * BSGs [phone] mg/dl * Pt NPO this AM for lumbar decompression and fusion L5-S1 * Steroids continue with Dexamethasone 6mg IV Q6hrs. Receiving NPH 30 units (0.3 units/kg) SQ BID for RTC steroid dosing * Goal is to maintain BSGs <200 mg/dl (ideally <150 mg/dl) to prevent post-op in fectious complications * Will continue to titrate Lantus, NovoLog, NPH to achieve goal BSGs * No changes needed this AM * AM fasting BSG is in range at 145 mg/dl * Prandial coverage will be held for NPO * Steroid dose unchanged. 01/20: * Patient received total of 89 units of insulin yesterday, of which 50 were basal insulin * Fasting BSG elevated at 202 mg/dL, but much improved. Patient plans for NPO status today / continue same NPH dosing to cover steroids * Lunch time BSG elevated / tightened CF and CR PLAN FOR INPATIENT GLYCEMIC CONTROL: * Holding outpatient oral diabetes medications * Basal insulin - no change * Lantus 20 units SQ HS * NPH 30 units SQ BIDM * Bolus insulin * NovoLog per scale ACHS or Q6hrs while NPO * Goal Range: Low 110 mg/dL - High 140 mg/dL * Correction Factor: 15 mg/dL/unit * Nutritional / Prandial insulin per carb ratio of 1 unit per 4 grams CHO consumed * Please note that the plan above was derived based on current level of insulin resistance and hospital stress. These recommendations are appropriate for inpatient admission only. Plan of care upon discharge will need to be reassessed to avoid potential outpatient hypo/hyperglycemia. Thank you.
[2020-01-22] MEDS ORDERED: BACITRACIN INJ 50,000 UNIT VIAL ONE (11:44)
--- NOTE | 2020-01-22 11:56 | Hospitalist Progress Note ---
Date of Service January 22, 2020 Assessment & Plan (1) Lumbar back pain with radiculopathy affecting right lower extremity: Continue decadron, pain control Consulted orthopedic spine surgery Dr. Wolfe - Patient to surgery today. No cardiac or pulmonary history per patient - patient does report "abnormal" EKG in the past so preop EKG was ordered - showed sinus rhythm. Remote smoking history but only about a pack a year at that time. He does smoke daily medical marijuana. RCRI is 6.0%. This risk was discussed with patient and he verbalized understanding. Electrolytes wnl, bsgs under better control this morning. Patient is optimized for surgery (2) Lumbar herniated disc: Lumbar herniated disc at L5-S1 causing deflection of thecal sac and pressure on L5 nerve root As above (3) Diabetes mellitus: Hold Metformin and [facility] Pharmacy glycemic consult (4) Hyperlipidemia: On no specific treatment at this time (5) Anxiety: Continue alprazolam 1 mg p.o. 3 times daily as needed. Ambien for sleep initiated at admission. (6) DVT prophylaxis: SCDs Admission and Anticipated Discharge Date Admission Date: January 19, 2020 Subjective Mr. Power continues to have back pain with intermittent radiculopathy. He is requiring IV dilaudid for pain control. Plan is for surgery with Dr. Wolfe today. ROS Constitutional: no chills, aches, sweats or fever Respiratory: no sob,cough, sputum, or wheezing Cardiac: no chest pain, palpitations, edema, orthopnea or lightheadedness GI: no abdominal pain, nausea, vomiting, diarrhea or constipation : no dysuria or hesitancy Extremities: no joint pain or weakness Skin: no rash All other systems reviewed and negative Physical Exam Physical Exam: General: no distress Eyes: normal inspection, PERLL Respiratory: chest non tender, clear to auscultation, normal breath sounds, no respiratory distress, no accessory muscle use Cardiac: regular rate and rhythm, no rub or gallop, no murmur, no edema, no jvd GI/: active bowel sounds, no abd pain or tenderness, soft, non distended Extremities: normal range of motion, normal strength, non tender Neuro/Psych: alert and oriented x 3, normal mood and affect Skin: normal color, dry Results & Data Results & Data ([facility]) Vital Signs (Past 12 Hours) Vital Signs Temp Pulse Resp BP Pulse Ox 01/22/20 11:11 36.4 C L 91 H 20 137/87 92 01/22/20 07:26 36.4 C L 67 16 124/80 90 PG Care Time/CCT Total # of Minutes Spent Total Time Spent with Patient: Total time spent is greater than 50% in coordination of care (as documented) at patient's floor/unit and/or counseling patient: Coding Level of Care Code 25145 Subseq Hosp Care Lvl 2 Diagnoses Lumbar back pain with radiculopathy affecting right lower extremity M54.16 Lumbar herniated disc M51.26 Diabetes mellitus E11.9 Hyperlipidemia E78.5 Anxiety F41.9 DVT prophylaxis Z29.9
[2020-01-22] MEDS ORDERED: BUPIVACAINE/EPINEPHRINE 0.5% MPF 1:200,000 30 ML VIAL ONE (12:14)
[2020-01-22] MEDS ORDERED: HYDROmorphone INJ 2 MG/ML SYR/VIAL ONE (12:45)
[2020-01-22] MEDS ORDERED: ROCURONIUM BROMIDE 10 MG/ML 5 ML VIAL IV ONE (12:49)
[2020-01-22] MEDS ORDERED: FLOSEAL HEMOSTATIC MATRIX 10ML TOP ONE (13:01)
--- NOTE | 2020-01-22 13:23 | Operative Report ---
Post Operative Report Pre & Post Diagnosis Operation Date: 01/22/20 08:20 Pre-Op Diagnosis: Spondylolisthesis L5-S1 with Radiculopathy Post-Op Diagnosis: Spondylolisthesis L5-S1 with Radiculopathy I identified the patient and participated in the time-out.: Yes Procedure Operation Date: 01/22/20 08:20 Actual Procedures #1 lumbar decompression with bilateral medial facetectomies and foraminotomies L5-S1. #2 posterior spinal fusion L5-S1. #3 placement posterior instrumentation L5-S1 per #4 interbody fusion L5-S1. #5 placement of peek cage 13 x 26 mm at L5-S1 peer #6 placement locally harvested morselized autograft in the posterior lateral gutters per #7 placement infuse collagen sponge combined with master graft in the posterior lateral gutters and ostial amp and interbody space. Surgeon Thanh Wolfe DO Finance Administrator Lakisha Cheng Estimated Blood Loss 100 Findings Consistent with Post-Op Diagnosis Specimens None Indications This is a 49-year-old male who presents with above-mentioned diagnosis after failing history of nonoperative care and marked decline in status is here for the above-mentioned procedure. Description of Procedure Patient was met with identified informed consent obtained. Patient was then taken to the operative suite underwent intubation placed in a prone position on the Marty table on top of the Matthew frame. All bony prominences well-padded eyes inspected to ensure no external pressure placed upon them. This point the lumbar spine was prepped and draped in normal sterile fashion. Sharp dissection with the assistance of Bovie cautery was performed down to and exposing the lamina and transverse processes of L5 and sacral ala bilaterally. Obvious bilateral pars defect noted. A complete laminectomy of L5 was performed including bilateral medial facetectomies foraminotomies addressing all stenosis as well as a massive disc herniation on the right with significant displacement traversing S1 nerve root. After complete decompression pedicle screws were placed in L5 and S1 levels bilaterally with assistance of fluoroscopy and a ppropriate size troy placed. By way of a transforaminal portion right a complete discectomy of all 5 S1 was performed endplates curetted to subcortical bleeding bone and a 13 x 26 mm peek cage filled with osteobone graft tapped in position. The rods were then locked in final position bilaterally. The transverse processes of L5 and sacral ala burred to subcortical bleeding bone. Infuse collagen sponge master graft lobe autograft was placed in the posterior lateral gutters. 15 round SHAQUILLE drain inserted. Incision was then closed with 1 Vicryl in the fascia 2-0 Vicryl subcutaneously and 4 Monocryl for final skin closure. Steri-Strip sterile dressings placed. Patient waken taken to PACU stable condition. Please note spinal cord monitoring was utilized at the procedure and no changes noted. Lastly Lakisha Cheng was present for entire surgery involved the patient positioning complex portions of the surgery and final skin closure. I attest to the content of the Intraoperative Record and any orders documented therein. Any exceptions are noted below.
--- NOTE | 2020-01-22 13:29 | Fluoroscopy Report ---
FL lumbar spine 2-3V CLINICAL HISTORY: L5-S1 DECOMPRESSION/FUSION/INTERBODY COMPARISON STUDY: Outside MRI dated 01/02/2020 FLUOROSCOPY TIME: 16 seconds. NUMBER OF FLUOROSCOPIC IMAGES: 2 FINDINGS: 2 intraoperative fluoroscopic spot images reveal postsurgical changes of an L5-S1 discectom y, interbody fusion, and spinal fusion with posterior pedicle screw fixation. IMPRESSION: Intraoperative fluoroscopic spot images demonstrating L5-S1 decompression and spinal fus ion. ACT 112: Negative or not required by law. Electronically signed by: Ramsey Mendez M.D. 01/22/2020 1:28 PM
[2020-01-22] MEDS: fentaNYL citrate 100 MCG/2 ML VIAL IV PRN ×2 (14:04→14:13)
--- NOTE | 2020-01-22 14:52 | Anesthesiology Progress Note ---
Date of Service January 22, 2020 Anesthesia Post Procedure Vital Signs Vital Signs: Temp Pulse Pulse Resp BP BP Pulse Ox 01/22/20 14:40 63 12 153/97 H 94 01/22/20 14:30 81 16 148/96 H 96 01/22/20 14:20 86 17 145/98 H 95 01/22/20 14:10 86 19 158/105 H 95 01/22/20 14:00 78 20 161/98 H 100 01/22/20 13:50 80 14 151/105 H 100 01/22/20 13:44 36.5 C 86 12 146/100 H 96 01/22/20 11:11 36.4 C L 91 H 20 137/87 92 01/22/20 07:26 36.4 C L 67 16 124/80 90 01/21/20 23:49 36.5 C 88 14 130/72 92 01/21/20 15:04 36.4 C L 85 18 147/92 H 97 Pain Intensity Back: Pain Intensity: 4 Transfer of Care Handoff Completed per policy Notes Mental Status: alert / awake / arousable and participated in evaluation Patient Amnestic to Procedure: Yes Nausea / Vomiting: adequately controlled Pain: adequately controlled Airway Patency, RR, SpO2: stable & adequate BP & HR: stable & adequate Hydration State: stable & adequate Anesthetic Complications: no major complications apparent and Pt Satisfied with anesthetic care
[2020-01-22] MEDS ORDERED: ACETAMINOPHEN 1,000 MG/100 ML VIAL IV PRN (15:20)
[2020-01-22] MEDS ORDERED: ONDANSETRON INJ 2 MG/ML 2 ML VIAL IV PRN (15:20)
[2020-01-22] MEDS ORDERED: METOCLOPRAMIDE HCL INJ 5 MG/ML 2 ML VIAL IV PRN (15:20)
[2020-01-22] MEDS ORDERED: hydrOXYzine HCl 25 MG TAB PO PRN (15:20)
[2020-01-22] MEDS ORDERED: MAGNESIUM HYDROXIDE SUSP 30 ML UDC PO PRN (15:20)
[2020-01-22] MEDS ORDERED: DO NOT ADMINISTER PNEUMOCOCCAL VACCINE PRN (15:20)
[2020-01-22] MEDS ORDERED: bisacodyL 10 MG SUPP PR PRN (15:20)
[2020-01-22] MEDS ORDERED: HYDROCODONE/ACETAMINOPHEN 7.5/325MG TAB PO PRN (15:20)
[2020-01-22] MEDS ORDERED: SOD PHOSPHATE/SOD BIPHOSPHATE ENEMA 132 ML BTL PR PRN (15:20)
[2020-01-22] MEDS ORDERED: FAMOTIDINE 20 MG TAB PO PRN (15:20)
[2020-01-22] MEDS ORDERED: IBUPROFEN 800 MG TAB PO PRN (15:20)
[2020-01-22] MEDS ORDERED: PROMETHAZINE HCL 12.5 MG in SODIUM CHLORIDE 0.9% 50 ML IV PRN (15:20)
[2020-01-22] MEDS ORDERED: ASPIRIN 325 MG ECTAB PO SCH (15:20)
[2020-01-22] MEDS ORDERED: NALOXONE HCL 0.4 MG/1 ML VIAL/CARP IV PRN (15:20)
[2020-01-22] MEDS ORDERED: ALUMINUM/MAGNESIUM SUSP 30 ML UDC PO PRN (15:20)
[2020-01-22] MEDS ORDERED: ACETAMINOPHEN 500 MG TAB PO PRN (15:20)
[2020-01-22] MEDS ORDERED: ONDANSETRON 4 MG OD TAB PO PRN (15:20)
[2020-01-22] MEDS ORDERED: LORazepam 0.5 MG/1 ML VIAL IV PRN (15:20)
[2020-01-22] MEDS ORDERED: LORazepam 0.5 MG TAB PO PRN (15:20)
[2020-01-22] MEDS ORDERED: diphenhydrAMINE Capsule 25 MG CAP PO PRN (15:20)
[2020-01-22] MEDS ORDERED: DO NOT ADMINISTER FLU VACCINE PRN (15:20)
[2020-01-22] MEDS ORDERED: CYCLOBENZAPRINE HCL 10 MG TAB PO PRN (15:30)
[2020-01-22] MEDS: SODIUM CHLORIDE 0.9% 1000ML 1,000 ML IV SCH (15:47)
[2020-01-22] MEDS: oxyCODONE HCL IR 5 MG TAB (IMMEDIATE RELEASE) PO PRN (20:15)
[2020-01-22] MEDS: ceFAZolin 2000MG 2,000 MG/15 ML SYR IV SCH (20:20)
[2020-01-22] MEDS: DOCUSATE SODIUM/SENNA 50/8.6MG TAB PO SCH (20:20)
[2020-01-22] MEDS ORDERED: metFORMIN HCL 500 MG TAB PO SCH (21:00)
[2020-01-22] MEDS: INSULIN GLARGINE SOLOSTAR 100 UNITS/ML 3 ML PEN SC SCH (21:03)
[2020-01-23] MEDS: SODIUM CHLORIDE 0.9% 1000ML 1,000 ML IV SCH (01:59)
[2020-01-23] MEDS: ceFAZolin 2000MG 2,000 MG/15 ML SYR IV SCH (04:34)
[2020-01-23] MEDS: POLYETHYLENE (MIRALAX) 17 GM PACK PO SCH ×3 (05:45→18:07)
[2020-01-23 07:48] LABS: Hematocrit (blood only) 40.3 % (42-52); Hemoglobin 14.2 g/dL (14.0-18.0); Immature Granulocytes # (auto) 0.06 K/uL (0.00-0.02); Immature Granulocytes % (auto) 0.4 %; Lymphocytes # (auto) 1.93 K/uL (1.2-3.4); Lymphocytes % (auto) 14.4 %; Mean Corpuscular Hemoglobin 32.9 pg (25-34); Mean Corpuscular Hgb Conc 35.2 g/dL (32-36); Mean Corpuscular Volume 93.3 fL (80-100); Mean Platelet Volume 9.4 fL (7.4-10.4); Monocytes # (auto) 0.54 K/uL (0.11-0.59); Neutrophils # (auto) 10.87 K/uL (1.4-6.5); Neutrophils % (auto) 81.2 %; Platelet Count 181 K/uL (130-400); RDW Coefficient of Variation 12.5 % (11.5-14.5); RDW Standard Deviation 42.1 fL (36.4-46.3); Red Blood Count 4.32 M/uL (4.7-6.1)
[2020-01-23 08:16] LABS: BUN Creatinine Ratio 32.9 (10-20); Calcium 7.9 mg/dl (8.5-10.1); Creatinine Clr Calc Pharmacy 114.5 ml/min; Est GFR (African American) 117.5; Est GFR (Non-African American) 101.4; Potassium 3.8 mmol/L (3.5-5.1)
[2020-01-23] MEDS: INSULIN ASPART 100 UNITS/ML 3 ML PEN SC SCH ×4 (09:00→21:30)
[2020-01-23] MEDS: ALPRAZolam 0.5 MG TABLET PO PRN ×3 (09:01→21:05)
[2020-01-23] MEDS: HYDROmorphone INJ 0.5 MG/0.5 ML SYR IV PRN ×4 (09:13→21:06)
--- NOTE | 2020-01-23 09:20 | Pharmacy Report ---
Pharmacy Glycemic Short Note 2 - Date of Service January 23, 2020 - Glycemic Short BSG Results (Last 24 hours): 01/22/20 01/22/20 01/22/20 08:42 13:53 17:22 Glucose 160 H POC Glucose 158 H 145 H 01/22/20 01/23/20 01/23/20 20:55 07:35 08:16 Glucose 73 POC Glucose 144 H 75 ASSESSMENT: * RD is a 49 year old male now POD #1 s/p lumbar decompression/fusion * Prior to surgery - patient was receiving dexamethasone 6 mg IV q6h * Was covering with NPH 30 units BIDM * Dexamethasone IV was discontinued yesterday morning - last dose at 0600 on 01/22/20 * NPH insulin should have been held last evening, but it was not discontinued and the note to hold if dexamethasone was d/c'd was missed by RN - additional NPH dose explains BSG of 73 mg/dL this morning * Now that steroids are discontinued - will discontinue NPH PLAN FOR INPATIENT GLYCEMIC CONTROL: * Holding outpatient oral diabetes medications * Basal insulin - d/c NPH, add Lantus scale * Lantus scale this evening to provide 15-20 units (see EHR for details) * d/c NPH * Bolus insulin - loosen * NovoLog per scale ACHS or Q6hrs while NPO * Goal Range: Low 110 mg/dL - High 140 mg/dL * Correction Factor: 25 mg/dL/unit * Nutritional / Prandial insulin per carb ratio of 1 unit per 8 grams CHO consumed * Please note that the plan above was derived based on current level of insulin resistance and hospital stress. These recommendations are appropriate for inpatient admission only. Plan of care upon discharge will need to be reassessed to avoid potential outpatient hypo/hyperglycemia. Thank you.
--- NOTE | 2020-01-23 12:57 | Orthopedic Progress Note ---
Date of Service January 23, 2020 Assessment & Plan (1) Spondylolisthesis, lumbar region: Admission and Anticipated Discharge Date Admission Date: January 19, 2020 At this time encouraged him to continue with physical therapy as tolerated. I did review his pain regiment with Dr. Cox he and I both agree he is on adequate doses for his procedure. Subjective Patient complaining of back and leg pain. He feels he has very little improvement after his procedure. He is not at all satisfied with the current pain regiment. Physical Exam Physical Exam: On exam he is sent in bed. Does not appear to be in acute distress. Is reasonable strength testing. He is ambulating per report. Results & Data ([facility]) Vital Signs (Past 12 Hours) Vital Signs Temp Pulse Pulse Resp BP Pulse Ox 01/23/20 11:26 36.6 C 63 16 154/93 H 94 01/23/20 07:49 36.4 C L 63 16 111/73 94 01/23/20 04:00 36.3 C L 62 18 100/62 92
--- NOTE | 2020-01-23 13:13 | Hospitalist Progress Note ---
Date of Service January 23, 2020 Assessment & Plan (1) Lumbar back pain with radiculopathy affecting right lower extremity: S/p decompression and fusion 01/21 Continue decadron, pain control - Dr. Wolfe discussed pain regimen with pain management and will continue current therapy as it is. (2) Lumbar herniated disc: Lumbar herniated disc at L5-S1 causing deflection of thecal sac and pressure on L5 nerve root As above (3) Diabetes mellitus: Hold Metformin and [facility] glycemic consult (4) Hyperlipidemia: On no specific treatment at this time (5) Anxiety: Continue alprazolam 1 mg p.o. 3 times daily as needed. Ambien for sleep initiated at admission. (6) DVT prophylaxis: SCDs Admission and Anticipated Discharge Date Admission Date: January 19, 2020 Subjective Mr. Power reports significant back and shoulder pain. He is very concerned about being discharged to home with adequate narcotic coverage. He does not feel his pain medications here are working for him ROS Constitutional: no chills, aches, sweats or fever Respiratory: no sob,cough, sputum, or wheezing Cardiac: no chest pain, palpitations, edema, orthopnea or lightheadedness GI: no abdominal pain, nausea, vomiting, diarrhea or constipation : no dysuria or hesitancy Extremities: no joint pain or weakness Skin: no rash All other systems reviewed and negative Physical Exam Physical Exam: General: no distress Eyes: normal inspection, PERLL Respiratory: chest non tender, clear to auscultation, normal breath sounds, no respiratory distress, no accessory muscle use Cardiac: regular rate and rhythm, no rub or gallop, no murmur, no edema, no jvd GI/: active bowel sounds, no abd pain or tenderness, soft, non distended Extremities: normal range of motion, normal strength, non tender Neuro/Psych: alert and oriented x 3, normal mood and affect Skin: normal color, dry Results & Data Results & Data ([facility]) Vital Signs (Past 12 Hours) Vital Signs Temp Pulse Pulse Resp BP Pulse Ox 01/23/20 11:26 36.6 C 63 16 154/93 H 94 01/23/20 07:49 36.4 C L 63 16 111/73 94 01/23/20 04:00 36.3 C L 62 18 100/62 92 PG Care Time/CCT Total # of Minutes Spent Total Time Spent with Patient: Total time spent is greater than 50% in c oordination of care (as documented) at patient's floor/unit and/or counseling patient: Coding Level of Care Code 10061 Subseq Hosp Care Lvl 2 Diagnoses Lumbar back pain with radiculopathy affecting right lower extremity M54.16 Lumbar herniated disc M51.26 Diabetes mellitus E11.9 Hyperlipidemia E78.5 Anxiety F41.9 DVT prophylaxis Z29.9
[2020-01-23] MEDS ORDERED: oxyCODONE HCL IR 5 MG TAB (IMMEDIATE RELEASE) PO PRN ×2 (16:33→16:39)
[2020-01-23] MEDS: MAGNESIUM HYDROXIDE SUSP 30 ML UDC PO PRN (18:07)
[2020-01-23] MEDS ORDERED: INSULIN GLARGINE SOLOSTAR 100 UNITS/ML 3 ML PEN SC SCH (21:00)
[2020-01-23] MEDS: INSULIN GLARGINE SOLOSTAR 100 UNITS/ML 3 ML PEN SC SCH (21:07)
[2020-01-23] MEDS: ZOLPIDEM TARTRATE 10 MG TAB PO PRN (21:20)
[2020-01-23] MEDS: DOCUSATE SODIUM/SENNA 50/8.6MG TAB PO SCH (21:23)
[2020-01-24] MEDS: POLYETHYLENE (MIRALAX) 17 GM PACK PO SCH ×4 (00:09→17:27)
[2020-01-24] MEDS: HYDROmorphone INJ 0.5 MG/0.5 ML SYR IV PRN ×3 (00:09→08:44)
[2020-01-24 06:10] LABS: Hemoglobin 13.6 g/dL (14.0-18.0); Mean Corpuscular Hemoglobin 32.5 pg (25-34); Mean Corpuscular Hgb Conc 34.9 g/dL (32-36); Mean Corpuscular Volume 93.3 fL (80-100); Mean Platelet Volume 9.2 fL (7.4-10.4); Platelet Count 114 K/uL (130-400); RDW Coefficient of Variation 12.6 % (11.5-14.5); RDW Standard Deviation 42.5 fL (36.4-46.3); Red Blood Count 4.18 M/uL (4.7-6.1); White Blood Count 7.98 K/uL (4.8-10.8)
[2020-01-24 06:47] LABS: BUN Creatinine Ratio 27.9 (10-20); Calcium 7.5 mg/dl (8.5-10.1); Creatinine Clr Calc Pharmacy 114.5 ml/min; Est GFR (African American) 117.5; Est GFR (Non-African American) 101.4; Potassium 3.7 mmol/L (3.5-5.1)
[2020-01-24] MEDS: INSULIN ASPART 100 UNITS/ML 3 ML PEN SC SCH ×4 (08:30→20:57)
[2020-01-24] MEDS: ALPRAZolam 0.5 MG TABLET PO PRN ×3 (08:44→20:37)
--- NOTE | 2020-01-24 09:50 | Orthopedic Progress Note ---
Date of Service January 24, 2020 Assessment & Plan (1) Lumbar back pain with radiculopathy affecting right lower extremity: Admission and Anticipated Discharge Date Admission Date: January 19, 2020 Patient is status post lumbar depression fusion. He is beginning physical therapy. His major concern is lack of adequate pain control. He may be a candidate for extended release medication such as OxyContin however I did emphasize if we initiate disabling before a week or 2 at most. He is not sure he is satisfied with this plan. From orthopedic standpoint he is ready for discharge home tomorrow. Subjective Patient complaining back and leg pain Physical Exam Physical Exam: Patient is in the chair at the bedside. He is in obvious distress secondary to lack of pain control. He is however neurologically intact. Results & Data ([facility]) Vital Signs (Past 12 Hours) Vital Signs Temp Pulse Pulse Resp BP Pulse Ox 01/24/20 07:48 36.6 C 66 16 113/75 92 01/23/20 23:36 36.8 C 70 14 115/69 94
--- NOTE | 2020-01-24 10:04 | Pharmacy Report ---
Pharmacy Glycemic Short Note 2 - Date of Service January 24, 2020 - Glycemic Short BSG Results (Last 24 hours): 01/23/20 01/23/20 01/23/20 12:01 17:15 20:38 Glucose POC Glucose 94 99 117 H 01/24/20 01/24/20 05:53 08:10 Glucose 87 POC Glucose 96 ASSESSMENT: * Pt has received 30 unit of insulin over the past 24hrs * 17 units of basal with Lantus * 13 units of bolus with NovoLog * BSGs 56-60-33-117-96 mg/dl * Glycemic control excellent with current orders. * Steroids dc on 01/23/20 - extra insulin (NPH) stopped at the same time. Current insulin regimen is c/w outpatient dosing. * AM fasting BSG is slightly below goal range for inpatient targets - will reduce basal insulin dosing to outpatient orders of 15-17 units instead of 15- 20 units as currently ordered * Goal is to maintain BSGS <200mg/dl (ideally <150mg/dl) to prevent post-op infectious complications PLAN FOR INPATIENT GLYCEMIC CONTROL: * Holding outpatient oral diabetes medications- using NovoLog in its place * Basal insulin - Lantus scale * Lantus scale this evening to provide 15-17 units (see EHR for details) * Bolus insulin - no change * NovoLog per scale ACHS or Q6hrs while NPO * Goal Range: Low 110 mg/dL - High 140 mg/dL * Correction Factor: 25 mg/dL/unit * Nutritional / Prandial insulin per carb ratio of 1 unit per 8 grams CHO consumed Plan for Discharge: * Tight glycemic control essential for healing. * A1c = 8.2% on 01/20/20 * AM fasting BSG is in goal range with current outpatient basal insulin orders - no change needed to Toujeo dosing * Pt would benefit from the addition of NovoLog with meals to get A1c into goal range of <7 % * Recommend NovoLog 4 units SQ TIDM * Please note that the plan above was derived based on current level of insulin resistance and hospital stress. These recommendations are appropriate for inpatient admission only. Plan of care upon discharge will need to be reassessed to avoid potential outpatient hypo/hyperglycemia. Thank you.
[2020-01-24] MEDS: oxyCODONE HCL 10 MG TABCR (OxyCONTIN) PO SCH ×2 (11:01→20:37)
[2020-01-24] MEDS: oxyCODONE HCL IR 5 MG TAB (IMMEDIATE RELEASE) PO PRN (13:10)
--- NOTE | 2020-01-24 14:18 | Hospitalist Progress Note ---
Date of Service January 24, 2020 Assessment & Plan (1) Lumbar back pain with radiculopathy affecting right lower extremity: S/p decompression and fusion 01/21 Continue decadron, pain control - will d/c IV dilaudid, give 10 mg OxyContin bid and 5 mg q6h for breakthrough pain. (2) Lumbar herniated disc: Lumbar herniated disc at L5-S1 causing deflection of thecal sac and pressure on L5 nerve root As above (3) Diabetes mellitus: Hold Metformin and [facility] Pharm[facility] glycemic consult (4) Hyperlipidemia: On no specific treatment at this time (5) Anxiety: Continue alprazolam 1 mg p.o. 3 times daily as needed. Ambien for sleep initiated at admission. (6) DVT prophylaxis: SCDs Admission and Anticipated Discharge Date Admission Date: January 19, 2020 Subjective Mr. Power continues to have back pain, he does not feel that his current regimen is adequately controlling his pain. ROS Constitutional: no chills, aches, sweats or fever Respiratory: no sob,cough, sputum, or wheezing Cardiac: no chest pain, palpitations, edema, orthopnea or lightheadedness GI: no abdominal pain, nausea, vomiting, diarrhea or constipation : no dysuria or hesitancy Extremities: no joint pain or weakness Skin: no rash All other systems reviewed and negative Physical Exam Physical Exam: General: no distress Eyes: normal inspection, PERLL Respiratory: chest non tender, clear to auscultation, normal breath sounds, no respiratory distress, no accessory muscle use Cardiac: regular rate and rhythm, no rub or gallop, no murmur, no edema, no jvd GI/: active bowel sounds, no abd pain or tenderness, soft, non distended Extremities: normal range of motion, normal strength, non tender Neuro/Psych: alert and oriented x 3, normal mood and affect Skin: normal color, dry Results & Data Results & Data ([facility]) Vital Signs (Past 12 Hours) Vital Signs Temp Pulse Resp BP Pulse Ox 01/24/20 07:48 36.6 C 66 16 113/75 92 PG Care Time/CCT Total # of Minutes Spent Total Time Spent with Patient: Total time spent is greater than 50% in coordinat ion of care (as documented) at patient's floor/unit and/or counseling patient: Coding Level of Care Code 13914 Subseq Hosp Care Lvl 2 Diagnoses Lumbar back pain with radiculopathy affecting right lower extremity M54.16 Lumbar herniated disc M51.26 Diabetes mellitus E11.9 Hyperlipidemia E78.5 Anxiety F41.9 DVT prophylaxis Z29.9
[2020-01-24] MEDS: DOCUSATE SODIUM/SENNA 50/8.6MG TAB PO SCH (20:37)
[2020-01-24] MEDS: ZOLPIDEM TARTRATE 10 MG TAB PO PRN (20:43)
[2020-01-24] MEDS: INSULIN GLARGINE SOLOSTAR 100 UNITS/ML 3 ML PEN SC SCH (20:56)
[2020-01-25] MEDS: oxyCODONE HCL IR 5 MG TAB (IMMEDIATE RELEASE) PO PRN ×4 (00:16→20:00)
[2020-01-25] MEDS: POLYETHYLENE (MIRALAX) 17 GM PACK PO SCH (00:48)
[2020-01-25 06:03] LABS: Hematocrit (blood only) 38.4 % (42-52); Hemoglobin 13.4 g/dL (14.0-18.0); Mean Corpuscular Hemoglobin 32.7 pg (25-34); Mean Corpuscular Hgb Conc 34.9 g/dL (32-36); Mean Corpuscular Volume 93.7 fL (80-100); Mean Platelet Volume 9.9 fL (7.4-10.4); Platelet Count 120 K/uL (130-400); RDW Coefficient of Variation 12.4 % (11.5-14.5); White Blood Count 6.95 K/uL (4.8-10.8)
[2020-01-25 06:36] LABS: Calcium 7.7 mg/dl (8.5-10.1); Est GFR (African American) 123.8; Est GFR (Non-African American) 106.8
[2020-01-25 06:40] LABS: Potassium 3.8 mmol/L (3.5-5.1)
[2020-01-25] MEDS: oxyCODONE HCL 10 MG TABCR (OxyCONTIN) PO SCH ×2 (07:58→20:00)
--- NOTE | 2020-01-25 08:15 | Orthopedic Progress Note ---
Date of Service January 25, 2020 Assessment & Plan (1) Lumbar back pain with radiculopathy affecting right lower extremity: At this point patient is stable. He has elements of chronic narcotic use which is making pain control quite difficult. There is a brandon discussion prior to his surgery that this is likely to be the case. Orthopedically he is safe for home discharge. Will defer to medicine in terms of the actual discharge itself. Admission and Anticipated Discharge Date Admission Date: January 19, 2020 Subjective Patient still has complaints of lower back pain which is been chronic. No other complaints at this point. Physical Exam Physical Exam: Patient is alert and oriented. Strength and sensation grossly intact his calves are supple nontender. Results & Data ([facility]) Vital Signs (Past 12 Hours) Vital Signs Temp Pulse Resp BP Pulse Ox 01/25/20 07:50 36.6 C 86 18 98/67 L 98 01/24/20 23:51 36.7 C 76 14 107/64 93
[2020-01-25] MEDS: INSULIN ASPART 100 UNITS/ML 3 ML PEN SC SCH ×4 (08:37→21:55)
[2020-01-25] MEDS: ALPRAZolam 0.5 MG TABLET PO PRN ×3 (08:42→21:59)
[2020-01-25] MEDS: metFORMIN HCL 500 MG TAB PO SCH ×2 (10:16→16:12)
--- NOTE | 2020-01-25 11:25 | Hospitalist Progress Note ---
Date of Service January 25, 2020 Assessment & Plan (1) Lumbar back pain with radiculopathy affecting right lower extremity: S/p decompression and fusion 01/21 Continue pain control - 10 mg OxyContin bid and 5 mg q6h for breakthrough pain. Discontinued Flexeril. Patient is requesting Soma but will hold off on this as he is on multiple sedating medications. (2) Lumbar herniated disc: Lumbar herniated disc at L5-S1 causing deflection of thecal sac and pressure on L5 nerve root As above (3) Diabetes mellitus: Hold Metformin and [facility] Pharmacy glycemic consult (4) Hyperlipidemia: On no specific treatment at this time (5) Anxiety: Continue alprazolam 1 mg p.o. 3 times daily as needed. Ambien for sleep initiated at admission. (6) DVT prophylaxis: SCDs dispo: PT recommending rehab, CM to assist with placement. Admission and Anticipated Discharge Date Admission Date: January 19, 2020 Subjective Mr. Power continues to have pain in his right shoulder, back and right leg. ROS Constitutional: no chills, aches, sweats or fever Respiratory: no sob,cough, sputum, or wheezing Cardiac: no chest pain, palpitations, edema, orthopnea or lightheadedness GI: no abdominal pain, nausea, vomiting, diarrhea or constipation : no dysuria or hesitancy Extremities: no joint pain or weakness Skin: no rash All other systems reviewed and negative Physical Exam Physical Exam: General: no distress Eyes: normal inspection, PERLL Respiratory: chest non tender, clear to auscultation, normal breath sounds, no respiratory distress, no accessory muscle use Cardiac: regular rate and rhythm, no rub or gallop, no murmur, no edema, no jvd GI/: active bowel sounds, no abd pain or tenderness, soft, non distended Extremities: normal range of motion, normal strength, non tender Neuro/Psych: alert and oriented x 3, normal mood and affect Skin: normal color, dry Results & Data Results & Data ([facility]) Vital Signs (Past 12 Hours) Vital Signs Temp Pulse Resp BP Pulse Ox 01/25/20 07:50 36.6 C 86 18 98/67 L 98 01/24/20 23:51 36.7 C 76 14 107/64 93 PG Care Time/CCT Total # of Minutes Spent Total Time Spent with Patient: Total time spent is greater than 50% in coordination of care (as documented) at patient's floor/unit and/or counseling patient: Coding Level of Care Code 38818 Subseq Hosp Care Lvl 2 Diagnoses Lumbar back pain with radiculopathy affecting right lower extremity M54.16 Lumbar herniated disc M51.26 Diabetes mellitus E11.9 Hyperlipidemia E78.5 Anxiety F41.9 DVT prophylaxis Z29.9
--- NOTE | 2020-01-25 14:34 | Pharmacy Report ---
Pharmacy Glycemic Short Note 2 - Date of Service January 25, 2020 - Glycemic Short BSG Results (Last 24 hours): 01/24/20 01/24/20 01/25/20 16:57 20:52 05:20 Glucose 171 H POC Glucose 118 H 150 H 01/25/20 01/25/20 08:10 11:52 Glucose POC Glucose 169 H 194 H ASSESSMENT: * Pt has received 37 unit of insulin over the past 24hrs * 16 units of basal with Lantus * 21 units of bolus with NovoLog * BSGs 96, 117, 118, 150 mg/dl * AM fasting BSG is above goal. Basal insulin was decreased the past two days. I will slightly increase. Continue dose per scale. * Resume metformin as patient is preparing for discharge and renal function is at baseline. I will back off carb coverage slightly with metformin on board. May need to back off further tomorrow. * Goal is to maintain BSGS <200mg/dl (ideally <150mg/dl) to prevent post-op infectious complications PLAN FOR INPATIENT GLYCEMIC CONTROL: * Resume metformin 1000 mg PO BID * Basal insulin - Lantus scale * Lantus scale this evening to provide 16-18 units (see EHR for details) * Bolus insulin - loosen carb coverage * NovoLog per scale ACHS or Q6hrs while NPO * Goal Range: Low 110 mg/dL - High 140 mg/dL * Correction Factor: 25 mg/dL/unit * Nutritional / Prandial insulin per carb ratio of 1 unit per 12 grams CHO consumed Plan for Discharge: * Tight glycemic control essential for healing. * A1c = 8.2% on 01/20/20 * AM fasting BSG is in goal range with current outpatient basal insulin orders - no change needed to Toujeo dosing * Pt would benefit from the addition of NovoLog with meals to get A1c into goal range of <7 % * Recommend NovoLog 4 units SQ TIDM * Please note that the plan above was derived based on current level of insulin resistance and hospital stress. These recommendations are appropriate for inpatient admission only. Plan of care upon discharge will need to be reassessed to avoid potential outpatient hypo/hyperglycemia. Thank you.
[2020-01-25] MEDS ORDERED: HYDROmorphone INJ 1 MG/ML SYRINGE IV STA (16:29)
[2020-01-25] MEDS: DOCUSATE SODIUM/SENNA 50/8.6MG TAB PO SCH (20:01)
[2020-01-25] MEDS: INSULIN GLARGINE SOLOSTAR 100 UNITS/ML 3 ML PEN SC SCH (21:54)
[2020-01-25] MEDS: ZOLPIDEM TARTRATE 10 MG TAB PO PRN (21:59)
[2020-01-26] MEDS: oxyCODONE HCL IR 5 MG TAB (IMMEDIATE RELEASE) PO PRN (02:14)
--- NOTE | 2020-01-26 04:37 | Communication Note ---
Date of Service: January 26, 2020 Notified by nursing about 4AM that pt was leaving AMA. Went up to see him, he was in the hallway moving slowly with his walker. Stated that he was told his medication doses would be decreased and he would be undergoing PT in the AM, and did not feel that was adequate treatment. Stated that his ride was downstairs and he was leaving. He refused to sign the AMA paperwork. Resident Activity Tracking Resident Involvement: Civil Drafter Coverage Note Care Provided: Adult Hospital Medicine
--- NOTE | 2020-02-09 12:25 | Discharge Summary ---
Date of Service February 09, 2020 Admission HPI Per Admitting Provider The patient is a 49-year-old male with a past medical history including diabetes mellitus, anxiety, chronic pain syndrome, lumbar degenerative disc disease with herniated disc at L5-S1. He presents to the emergency department with persistent and worsening pain from his low back to right buttock to right leg. He did undergo an MRI in the outpatient setting at [facility] emergency department on 01/01 which showed disc herniation at L5-S1 with significant deformity of the right side of the thecal sac and encroachment on right sacral nerve roots. He does have pending appointments with orthopedic surgery and neurology on 01/20 and 01/21, however, his pain was so severe that he came in to the ED tonight. Dr. Wolfe, orthopedic spine surgery, was contacted over the phone by the ED, and agreed to see the patient in consult tomorrow. The plan is admit the [facility] the [facility]. He was given Dilaudid 1 mg and 0.5 mg IV in the ED with improvement in pain. I have added D ecadron 10 mg IV now in ED, and to continue 6 mg IV every 6 hours upon admission. Principal Diagnosis Spondylolisthesis L5-S1 Discharge Data Allergies Allergy/AdvReac Type Severity Reaction Status Date / Time blue dye Allergy Verified 01/14/20 08:09 bupropion [From Wellbutrin] Allergy Verified 01/14/20 08:09 celecoxib [From Celebrex] Allergy Verified 01/14/20 08:09 chlorhexidine Allergy Verified 01/22/20 11:46 diclofenac Allergy Verified 01/14/20 08:09 duloxetine [From Cymbalta] Allergy Verified 01/14/20 08:09 etodolac Allergy Verified 01/14/20 08:09 iodine Allergy Verified 01/14/20 08:09 lidocaine Allergy Verified 01/14/20 08:09 lisinopril Allergy Verified 01/14/20 08:09 paroxetine [From Paxil] Allergy Verified 01/14/20 08:09 povidone-iodine Allergy Verified 01/14/20 08:09 [From Betadine] rofecoxib Allergy Verified 01/14/20 08:09 soap [From Betadine] Allergy Verified 01/14/20 08:09 tramadol [From Ultram] Allergy Verified 01/14/20 08:09 venlafaxine [From Effexor] Allergy Verified 01/14/20 08:09 Consultations 01/19/20 20:27 ED Decision to Admit Stat 01/19/20 21:33 Consult Orthopedic Surgery Stat 01/19/20 22:46 Consult Case Management - Discharge Planning Routine 01/22/20 15:20 Consult Case Management - Discharge Planning Routine Procedures Performed Operation Date: 01/22/20 08:20 Actual Procedures p L5-S1 Decompression and Fusion with Instrumentation with Application of Bone Morphogenetic Protein and Osteoamp Allograft, Interbody Fusion with Spinal Cord Monitoring(Not Applicable) - Thanh Wolfe DO Ordered Studies 01/22/20 13:00 FL fluoroscopy <1hr Routine FL lumbar spine 2-3V Routine Hospital Course (1) Spondylolisthesis, lumbar region: Patient was admitted to hospital with intractable back and leg pain with weakness. After evaluation was determined he had spondylolisthesis with superimposed disc condition underwent surgical intervention. Postop day 1 he was still struggling with pain nevertheless was ambulating. On postop day 2 and 3 he steadily progressed. We discontinue his SHAQUILLE drain and subsequently discharged home. Discharge orders instructions from the chart for further review. Total Time Total Time Spent Total Time Spent (In Minutes): 20 minutes Discharge Plan Discharge Items Patient Disposition: Against Medical Advice Reason For Visit: RLE L5 RADICULOPATHY Discharge Diagnosis: spondylolisthesis; hnp lumbar spine Condition on Discharge: Good Activity: Per Instructions section Lifting: None Exercise/Sports: None Driving/Machine Use: no driving Non-emergency contact: Primary Care Provider Call non-emergency contact if: your symptoms worsen, your temperature is above 101 and your wound has increased drainage Follow-up/Referrals: PCP,NO [Physician] - Diet: Regular Addtl Attending Provider Instructions: ACTIVITY RECOMMENDATIONS: SELF CARE INSTRUCTIONS AFTER THORACIC/LUMBAR FUSIONS 1. You may walk to your tolerance. It is good exercise for your legs and back. Expect some back and intermittent leg aches and pains. 2. You may perform "counter-top" level activities (make a sandwich, gloria with a project, etc.). 3. No bending or lifting of more than 10 pounds or back twisting of any nature (roll like a log when turning in bed). 4. You may ride in a car for 20-30 minutes at a time. No driving until after your first visit with your doctor. 5. Frequent changes of position and restricting sitting to 30 minutes at a time will help limit the amount of back spasms and stiffness you may experience. 6. You may discontinue the use of ambulatory aids (cane, crutches, etc.) once your strength and confidence allow. 7. You may nuclear medicine supervisor the shower and let water strike your incision when you arrive home at least once daily. Do not take a tub bath, sit in a hot tub or go into a swimming pool until after your first recheck in the office. SPECIAL CARE INSTRUCTIONS: VERY IMPORTANT TO READ AND REVIEW A. Your surgical incision has been closed with a cosmetic suture under the skin that will dissolve in about 6 weeks. In 14 days, you can use a pair of clean scissors and cut the suture that is left outside of the skin at the ends of your incision. 1. The small skin tapes can be removed 7 days after surgery if they have not fallen off by that point. 2. You may keep the wound open to air as much as possible to promote healing after post-op day number 5 unless told otherwise by your doctor. 3. If you think the wound looks like it is becoming infected (redness or worsening drainage) and/or you are experiencing fever, chill or worsening back pain and muscle spasms, contact the office so that we may evaluate you as soon as possible. B. Complications are uncommon, but please contact us if you have any signs or symptoms of: 1. wound infection (fever higher than 102.5 degrees F, redness, separation of wound, drainage, or increasing pain from the incision) 2. blood clots in legs (pain, swelling, redness and warmth in legs) 3. urinary tract infection (fever higher than 102.5 degrees F, burning upon urination or increased frequency of urination) 4. nerve problems (inability to walk on your toes or heels, numbness, loss of bowel or bladder control) 5. any other symptoms that concern you C. Please call the office at if you have any concerns or questions about your operation or recovery. D. No smoking! Smoking drastically decreases the chance of a solid fusion. E. Do not take any anti-inflammatory medications (Indocin, Advil, Motrin, Aspirin, Naprosyn, etc.) as these may inhibit the chance of a solid fusion. Tylenol is okay to take for pain. MANAGING PAIN AFTER SPINAL SURGERY 1. Narcotic medication is intended for short-term use and will be provided for surgical pain. Surgical pain usually lasts for a period of 4-6 weeks. Narcotic medication includes Percocet, Vicodin, Darvocet, Tylenol #3 or Lortab. 2. Longer-term pain is more appropriately treated with non-narcotic medication such as Tylenol ES. 3. Muscle spasm is not appropriately treated with narcotics. Muscle relaxers such as Soma, Flexeril or Skelaxin can be used along with Tylenol ES. 4. Remember that we all live with some "aches and pains". This is not unusual or uncommon after an injury or as we get older. a. Back pain is expected and may include muscle spasms for 4 to 6 weeks after surgery. The pain should gradually improve. If the pain worsens for no apparent reason, please contact the office. b. Intermittent leg pain may also be experienced and should not be concerned about unless it worsens for no apparent reason. If so, please contact the office. 5. We will provide appropriate medication within the normal guidelines of their prescribed use. We will also be very cautious and aware of potential abuse and extended duration of patients' medication needs. a. Pain medications are for your comfort and to assist with sleep and rest so that the tissue can heal. They are not provided in order to return to normal activity and should not be used through the day. To do so or worsening pain at night can result from ongoing tissue damage and development of tolerance to the prescribed medicine. 6. Please allow 2-3 days to process refills. Prescriptions will not be mailed but must be picked up at the office. FOLLOW UP VISIT: Keep your scheduled follow-up appointment. Any questions, please call the office at . Addtl Flight Readiness Technician Provider Instructions: ACTIVITY RECOMMENDATIONS: SELF CARE INSTRUCTIONS AFTER THORACIC/LUMBAR FUSIONS 1. You may walk to your tolerance. It is good exercise for your legs and back. Expect some back and intermittent leg aches and pains. 2. You may perform "counter-top" level activities (make a sandwich, gloria with a project, etc.). 3. No bending or lifting of more than 10 pounds or back twisting of any nature (roll like a log when turning in bed). 4. You may ride in a car for 20-30 minutes at a time. No driving until after your first visit with your doctor. 5. Frequent changes of position and restricting sitting to 30 minutes at a time will help limit the amount of back spasms and stiffness you may experience. 6. You may discontinue the use of ambulatory aids (cane, crutches, etc.) once your strength and confidence allow. 7. You may nuclear medicine supervisor the shower and let water strike your incision when you arrive home at least once daily. Do not take a tub bath, sit in a hot tub or go into a swimming pool until after your first recheck in the office. SPECIAL CARE INSTRUCTIONS: VERY IMPORTANT TO READ AND REVIEW A. Your surgical incision has been closed with a cosmetic suture under the skin that will dissolve in about 6 weeks. In 14 days, you can use a pair of clean scissors and cut the suture that is left outside of the skin at the ends of your incision. 1. The small skin tapes can be removed 7 days after surgery if they have not fallen off by that point. 2. You may keep the wound open to air as much as possible to promote healing after post-op day number 5 unless told otherwise by your doctor. 3. If you think the wound looks like it is becoming infected (redness or worsening drainage) and/or you are experiencing fever, chill or worsening back pain and muscle spasms, contact the office so that we may evaluate you as soon as possible. B. Complications are uncommon, but please contact us if you have any signs or symptoms of: 1. wound infection (fever higher than 102.5 degrees F, redness, separation of wound, drainage, or increasing pain from the incision) 2. blood clots in legs (pain, swelling, redness and warmth in legs) 3. urinary tract infection (fever higher than 102.5 degrees F, burning upon urination or increased frequency of urination) 4. nerve problems (inability to walk on your toes or heels, numbness, loss of bowel or bladder control) 5. any other symptoms that concern you C. Please call the office at if you have any concerns or questions about your operation or recovery. D. No smoking! Smoking drastically decreases the chance of a solid fusion. E. Do not take any anti-inflammatory medications (Indocin, Advil, Motrin, Aspirin, Naprosyn, etc.) as these may inhibit the chance of a solid fusion. Tylenol is okay to take for pain. MANAGING PAIN AFTER SPINAL SURGERY 1. Narcotic medication is intended for short-term use and will be provided for surgical pain. Surgical pain usually lasts for a period of 4-6 weeks. Narcotic medication includes Percocet, Vicodin, Darvocet, Tylenol #3 or Lortab. 2. Longer-term pain is more appropriately treated with non-narcotic medication such as Tylenol ES. 3. Muscle spasm is not appropriately treated with narcotics. Muscle relaxers such as Soma, Flexeril or Skelaxin can be used along with Tylenol ES. 4. Remember that we all live with some "aches and pains". This is not unusual or uncommon after an injury or as we get older. a. Back pain is expected and may include muscle spasms for 4 to 6 weeks after surgery. The pain should gradually improve. If the pain worsens for no apparent reason, please contact the office. b. Intermittent leg pain may also be experienced and should not be concerned about unless it worsens for no apparent reason. If so, please contact the office. 5. We will provide appropriate medication within the normal guidelines of their prescribed use. We will also be very cautious and aware of potential abuse and extended duration of patients' medication needs. a. Pain medications are for your comfort and to assist with sleep and rest so that the tissue can heal. They are not provided in order to return to normal activity and should not be used through the day. To do so or worsening pain at night can result from ongoing tissue damage and devel opment of tolerance to the prescribed medicine. 6. Please allow 2-3 days to process refills. Prescriptions will not be mailed but must be picked up at the office. FOLLOW UP VISIT: Keep your scheduled follow-up appointment. Any questions, please call the office at . Pending Studies at Discharge: No Stand-Alone Forms: My [employer], Smoking Cessation Medications and DC Order Prescriptions: Continued cyclobenzaprine 10 mg tablet 10 mg PO TID PRN (Reason: muscle spasm) RF: 0 alprazolam [Xanax] 1 mg tablet 1 mg PO TID PRN (Reason: Anxiety) RF: 0 [place] SoloStar U-300 Insulin 300 unit/mL (1.5 mL) Insulin Pen 15 - 17 unit SUBCUT HS RF: 0 metformin 1,000 mg Tablet 1,000 mg PO BID RF: 0 oxycodone 5 mg Tablet 5 mg PO .4-6XDAILY PRN (Reason: Pain) RF: 0 aspirin 325 mg Tablet 975 mg PO .5XDAILY RF: 0 Medical Marijuana 0 puff inhalation DAILY RF: 0 Discontinued hydrocodone-acetaminophen [[place]] 7.5-325 mg Tablet 1 tab PO Q6H PRN (Reason: Pain) RF: 0 ibuprofen 800 mg Tablet 800 mg PO .5-6XDAILY PRN (Reason: Pain) RF: 0 Discharge Orders: Left Against Medical Advice (Routine); Ordered 01/27/20 Ordered By: Lakisha Oliveira/Other Patient Handouts: High Blood Sugar (Hyperglycemia), Managing Type 2 Diabetes, Managing Diabetes: The A1C Test Admission Data Admit Date/Time: 01/19/20 21:32 Attending Provider: Jamaal Tobin Admit Provider: Thanh Wolfe Primary Care Provider: Khurram Monterroso Other Providers: Kamron Coyne ; Thanh Wolfe ; [facility] Other Interventions: Discharge Summary Assessment (RN) Last Done: 01/26/20 04:05
== END 2020-01-26 04:05 | disposition left against medical advice (07) | DRG 455 ==
LOC: ED 16:36 → SUATTDRO 21:32 → 3W 21:32